=== PATIENT | female | born 1980 | race Caucasian/White ===

== ENCOUNTER 2018-09-01 21:13 | Emergency (ER) | payer OTHER ==
[~2018-09-01] VITALS: Ht 154.9 cm; Wt 130.2 kg
[~2018-09-01 21:13] MED LIST: ALBU90OI6 INH; AMOCLA500 PO; ASPI81EC PO; DOXY100 PO; HYDACE5325 PO; MULVITMIND PO; ONDA4ODT MM; Percocet 5-3251 EACH PO; TRAM50 PO
[2018-09-01 22:46] LABS: Source, Urine Clean Catch
[2018-09-01 22:49] LABS: Bilirubin, Urine Neg (Neg); Blood, Urine 1+ (Neg); Glucose Qualitative, Urine Neg (Neg); Ketones, Urine Neg (Neg); Leukocyte Esterase, Urine Neg (Neg); Nitrite, Urine Neg (Neg); Protein, Urine Neg (Neg); Specific Gravity, Urine 1.005 (1.003-1.022); Urobilinogen, Urine NORM (Normal)
[2018-09-01 22:53] LABS: Appearance, Urine Clear (Clear); Color, Urine Yellow (P-Yellow)
[2018-09-01 22:55] LABS: Bacteria Few /hpf; Red Blood Cells, Urine 0-2 /hpf (0-2); Squamous Epithelial Cells Few /hpf (Few); White Blood Cells, Urine 0-2 /hpf (0-5)
[2018-09-01] MEDS ORDERED: Omeprazole20 M1 PO (23:46)
[2018-09-01] MEDS ORDERED: METO25ER PO (23:47)
[2018-09-02] MEDS ORDERED: Pyridium100 MG PO (01:38)
== END 2018-09-02 01:45 | disposition home or self-care (01) ==
LOC: ER 21:13
PROVIDERS: Emergency Medicine
DX: R30.0 Dysuria (principal); Z87.442 Personal history of urinary calculi; F17.200 Nicotine dependence, unspecified, uncomplicated
CPT/HCPCS: 74176; 81001; 81025; 99284-25

== ENCOUNTER 2018-09-12 21:01 | Emergency (ER) | payer OTHER ==
[~2018-09-12] VITALS: Ht 154.9 cm; Wt 130.2 kg
[~2018-09-12 21:01] MED LIST changes: +METO25ER PO; +Omeprazole20 M1 PO; +Pyridium100 MG PO
[2018-09-12] MEDS ORDERED: VARE1 (21:22)
[2018-09-12 21:48] LABS: Source, Urine Clean Catch
[2018-09-12 21:54] LABS: Appearance, Urine Hazy (Clear); Bilirubin, Urine Neg (Neg); Blood, Urine 1+ (Neg); Color, Urine Yellow (P-Yellow); Glucose Qualitative, Urine Neg (Neg); Ketones, Urine 1+ (Neg); Leukocyte Esterase, Urine 3+ (Neg); Nitrite, Urine Neg (Neg); Protein, Urine 2+ (Neg); Urobilinogen, Urine 1+ (Normal)
[2018-09-12 22:03] LABS: White Blood Cells, Urine 50-100 /hpf (0-5)
[2018-09-12 22:04] LABS: Bacteria Mod /hpf; Squamous Epithelial Cells Rare /hpf (Few)
[2018-09-12] MEDS ORDERED: CHOL10002 PO (23:41)
[2018-09-12] MEDS ORDERED: Daily Multiple1 EACH PO (23:41)
[2018-09-12] MEDS ORDERED: Vitamin B Comple1 EA PO (23:41)
[2018-09-12] MEDS ORDERED: Ferrous Glucon324 MG PO (23:42)
[2018-09-13 00:17] LABS: BASOPHILS ABSOLUTE AUTO 0.05 K/mm3 (0.00-0.23); BASOPHILS PERCENT AUTO 0 % (0-2); EOSINOPHILS ABSOLUTE AUTO 0.45 K/mm3 (0.00-0.68); EOSINOPHILS PERCENT AUTO 4 % (0-6); Hemoglobin 13.1 g/dL (11.5-16.0); IMMATURE GRAN ABSOLUTE AUTO 0.04 K/mm3 (0.00-0.10); IMMATURE GRAN PERCENT AUTO 0 % (0-1); LYMPHOCYTES ABSOLUTE AUTO 2.06 K/mm3 (0.84-5.20); LYMPHOCYTES PERCENT AUTO 17 % (21-46); MONOCYTES ABSOLUTE AUTO 0.67 K/mm3 (0.16-1.47); MONOCYTES PERCENT AUTO 5 % (4-13); Mean Corpuscular HGB 29.4 pg (26.0-34.0); Mean Corpuscular Volume 92 fL (80-100); Mean Platelet Volume 9.1 fL (9.1-12.4); NEUTROPHILS ABSOLUTE AUTO 9.17 K/mm3 (1.96-9.15); NEUTROPHILS PERCENT AUTO 74 % (41-73); Platelet Count 352 K/mm3 (150-400); RDW Coefficient Variation 13.8 % (11.7-14.2); RDW Standard Deviation 46.9 fL (35.1-46.3); Red Blood Cell Count 4.46 M/mm3 (3.80-5.20); White Blood Cell Count 12.44 K/mm3 (4.00-11.30)
[2018-09-13] MEDS ORDERED: Percocet 5-3251 EACH PO (00:22)
[2018-09-13] MEDS ORDERED: Cipro500 MG PO (00:22)
[2018-09-13 00:31] LABS: Anion Gap 9 mmol/L (6-16); Blood Urea Nitrogen 16 mg/dL (8-24); Bun/Creatinine Ratio 28.7 (12.0-20.0); CO2, Blood 23 mmol/L (21-32); Calcium, Blood 8.3 mg/dL (8.5-10.1); Chloride, Blood 108 mmol/L (98-108); Creatinine, Blood 0.56 mg/dL (0.40-1.00); Glomerular Filtration Rate >60 (60-); Glucose, Blood 142 mg/dL (70-99); Sodium, Blood 140 mmol/L (136-145)
== END 2018-09-13 01:05 | disposition home or self-care (01) ==
LOC: ER 21:01
PROVIDERS: Emergency Medicine
DX: N12 Tubulo-interstitial nephritis, not specified as acute or chronic (principal); Z79.899 Other long term (current) drug therapy; Z87.442 Personal history of urinary calculi; E78.5 Hyperlipidemia, unspecified; F17.200 Nicotine dependence, unspecified, uncomplicated
CPT/HCPCS: 36415; 80048; 81001; 85025; 87077; 87086; 87186; 96365; 96366; 96375; 99283-25; J0696; J2405; J3010

== ENCOUNTER → 2018-09-25 | Outpatient (CLI) | payer OTHER ==
[~2018-09-25] MED LIST changes: +CHOL10002 PO; +Cipro500 MG PO; +Daily Multiple1 EACH PO; +Ferrous Glucon324 MG PO; +VARE1; +Vitamin B Comple1 EA PO
[2018-09-25 11:00] LABS: Source, Urine Clean Catch
[2018-09-25 12:23] LABS: Bilirubin, Urine Neg (Neg); Blood, Urine Neg (Neg); Glucose Qualitative, Urine Neg (Neg); Ketones, Urine Neg (Neg); Leukocyte Esterase, Urine Neg (Neg); Nitrite, Urine Neg (Neg); Protein, Urine Neg (Neg); Urobilinogen, Urine NORM (Normal)
[2018-09-25 12:38] LABS: Appearance, Urine Clear (Clear); Color, Urine Yellow (P-Yellow)
== END ==
LOC: LAB SHORT 08:00 → LAB 08:00
PROVIDERS: Nurse Practitioner Family
DX: N12 Tubulo-interstitial nephritis, not specified as acute or chronic (principal)
CPT/HCPCS: 81003